=== PATIENT | female | born 1960 | race Two or more races ===

== ENCOUNTER 2017-08-02 20:18 | Emergency (ER) | payer MEDICAID, OTHER ==
[~2017-08-02] VITALS: Ht 165.1 cm; Wt 52.2 kg
[2017-08-02 20:30] VITALS: BP 101/62
[2017-08-02] MEDS ORDERED: IBUPROFEN 600 MG TABLET PO ONE ×2 (21:30→22:01)
== END 2017-08-02 22:07 | disposition home or self-care (01) ==
LOC: ER 20:27
DX: T75.3XXA Motion sickness, initial encounter (principal); Y99.8 Other external cause status; G43.909 Migraine, unspecified, not intractable, without status migrainosus; R20.2 Paresthesia of skin; F41.9 Anxiety disorder, unspecified
CPT/HCPCS: 93005; 99283; A4606; Z7610